=== PATIENT | male | born 1970 | race Asian ===

== ENCOUNTER 2020-09-12 20:59 | Inpatient (IN) | payer MEDICAID, OTHER ==
[~2020-09-12] VITALS: Ht 172.7 cm; Wt 60.9 kg
[2020-09-12 22:04] LABS: Basophils # (auto) 0.1 10 ^3/uL (0-0.2); Eosinophils # (auto) 0 10 ^3/uL (0-0.8); Eosinophils % (auto) 0.1 % (0.0-7.0); Lymphocytes # (auto) 1.7 10 ^3/uL (0.4-5.4); Monocytes # (auto) 0.9 10 ^3/uL (0-1.3); White Blood Cell 11.8 10^3/uL (4.4-10.8)
[2020-09-12 22:05] LABS: Basophils % (auto) 0.8 % (0.0-2.0); Hematocrit 40.5 % (41.0-53.0); Hemoglobin 14.5 g/dL (13.5-17.5); Mean Corpuscular Hemoglobin 31.2 pg (28.0-32.0); Mean Corpuscular Hgb Conc. 35.9 g/dL (32.0-36.0); Neutrophils # (auto) 9.1 10 ^3/uL (1.6-8.6); Neutrophils % (auto) 77.1 % (37.0-80.0); Platelet Count (auto) 685 10^3/uL (140-450); Red Blood Cells 4.65 10^6/uL (4.5-5.90); Red Cell Distribution Width 12.4 % (11.8-14.3)
[2020-09-12 22:22] LABS: Anion Gap 11 (5-15); Blood Urea Nitrogen 12 mg/dL (7-18); Calcium 9.4 mg/dL (8.5-10.1); Carbon Dioxide 21 mmol/L (21-32); Chloride 94 mmol/L (98-107); Glucose 152 mg/dL (74-106); Magnesium 2.3 mg/dL (1.6-2.6); Potassium 3.6 mmol/L (3.5-5.1); Sodium 126 mmol/L (136-145)
[2020-09-12 22:27] LABS: Alanine Aminotransferase 40 U/L (16-61); Alkaline Phosphatase 114 U/L (45-117); Aspartate Aminotransferase 21 U/L (15-37); BUN/Creatinine Ratio 13.3; GFR African American 114 mL/min; GFR Non-African American 94 mL/min
[2020-09-12 23:07] LABS: Urine Bacteria FEW /hpf (None Seen); Urine Blood Negative /uL (Negative); Urine Specific Gravity 1.005 (1.001-1.035); Urine Sperm PRESENT /hpf (None Seen); Urine WBC <1 /hpf (0 - 3)
[2020-09-13] MEDS ORDERED: cefTRIAXone 1GM/50ML D5W 50 ML IV ONE (00:15)
[2020-09-13] MEDS ORDERED: SODIUM CHLORIDE 0.9% 1,000 ML IV ONE (01:00)
[2020-09-13] MEDS ORDERED: PHENAZOPYRIDINE HCL 100 MG TAB PO ONE (01:30)
[2020-09-13] MEDS ORDERED: MORPHINE SULF INJ 2 MG/ML SYRINGE 1ML IV PRN (10:15)
[2020-09-13] MEDS ORDERED: NITROGLYCERIN 0.4 MG SL TAB SL PRN (10:15)
[2020-09-13] MEDS ORDERED: ACETAMINOPHEN 500 MG TAB PO PRN (10:15)
[2020-09-13] MEDS ORDERED: ONDANSETRON HCL 4 MG/2 ML VIAL IV PRN (10:15)
[2020-09-13] MEDS ORDERED: PHEN-1143 PO (11:20)
[2020-09-13] MEDS ORDERED: CEFD300C2 PO (11:20)
[2020-09-13] MEDS ORDERED: TAMS0.4C36 PO (11:20)
[2020-09-13] MEDS: TAMSULOSIN HYDROCHLORIDE 0.4 MG CAP PO SCH (18:40)
[2020-09-13 22:00] VITALS: BP 138/92
[2020-09-13] MEDS: PHENAZOPYRIDINE HCL 100 MG TAB PO SCH (22:53)
[2020-09-14 01:32] VITALS: BP 138/92
[2020-09-14] MEDS ORDERED: DEXT60TA4 PO (01:55)
[2020-09-14 05:00] VITALS: BP 135/88
[2020-09-14 05:59] LABS: BUN/Creatinine Ratio 22.7; Calcium 9.1 mg/dL (8.5-10.1); Potassium 3.6 mmol/L (3.5-5.1)
[2020-09-14 08:58] VITALS: BP 135/99
[2020-09-14] MEDS: PHENAZOPYRIDINE HCL 100 MG TAB PO SCH ×2 (09:39→21:41)
[2020-09-14] MEDS: FAMOTIDINE 20 MG TAB PO SCH (09:39)
[2020-09-14] MEDS ORDERED: LACTULOSE 20Gm/30ML SOLN PO ONE (11:00)
[2020-09-14] MEDS ORDERED: LORazepam 0.5 MG TAB PO ONE (11:45)
[2020-09-14] MEDS ORDERED: LORazepam 0.5 MG TAB PO PRN (11:45)
[2020-09-14 12:36] VITALS: BP 125/88
[2020-09-14] MEDS: SOD CHL 0.9%/ KCL 20MEQ 1,000 ML IV SCH ×2 (13:54→21:24)
[2020-09-14] MEDS ORDERED: IOPAMIDOL 76 % (ISOVUE-370) 100ML BTL IV ONE (14:27)
[2020-09-14 16:05] LABS: Amphetamine Screen, Urine NEGATIVE (NEGATIVE); Barbiturate Scree,Urine NEGATIVE (NEGATIVE); Benzodiazephine Screen, Urine NEGATIVE (NEGATIVE); Cannabinoid Screen, Urine NEGATIVE (NEGATIVE); Cocaine Screen, Urine NEGATIVE (NEGATIVE); Opiate Scree,Urine NEGATIVE (NEGATIVE); Phencyclidine Screen, Urine NEGATIVE (NEGATIVE)
[2020-09-14 16:36] VITALS: BP 148/102
[2020-09-14] MEDS: TAMSULOSIN HYDROCHLORIDE 0.4 MG CAP PO SCH (18:10)
[2020-09-14] MEDS: HYDROcodone-ACET 5/325MG TAB PO PRN (18:11)
[2020-09-14] MEDS: ZOLPIDEM TARTRATE 5 MG TAB PO PRN (21:41)
[2020-09-14] MEDS: LACTULOSE 20Gm/30ML SOLN PO SCH (21:41)
[2020-09-14 22:00] VITALS: BP 144/99
[2020-09-15 05:00] VITALS: BP 149/85
[2020-09-15 07:24] LABS: Basophils # (auto) 0.1 10 ^3/uL (0-0.2); Basophils % (auto) 0.8 % (0.0-2.0); Eosinophils # (auto) 0 10 ^3/uL (0-0.8); Monocytes # (auto) 0.5 10 ^3/uL (0-1.3)
[2020-09-15 07:27] LABS: Eosinophils % (auto) 0.2 % (0.0-7.0); Hematocrit 37.4 % (41.0-53.0); Hemoglobin 13.4 g/dL (13.5-17.5); Lymphocytes # (auto) 1.8 10 ^3/uL (0.4-5.4); Mean Corpuscular Hemoglobin 31.4 pg (28.0-32.0); Mean Corpuscular Hgb Conc. 35.7 g/dL (32.0-36.0); Monocytes % (auto) 5.4 % (0.0-12.0); Neutrophils # (auto) 6.1 10 ^3/uL (1.6-8.6); Neutrophils % (auto) 72.6 % (37.0-80.0); Nucleated Red Blood Cells % 0.1 %; Platelet Count (auto) 453 10^3/uL (140-450); Red Blood Cells 4.25 10^6/uL (4.5-5.90); Red Cell Distribution Width 12.3 % (11.8-14.3); White Blood Cell 8.5 10^3/uL (4.4-10.8)
[2020-09-15 07:36] LABS: INR 1.09 (0.9-1.15); Partial Thromboplastin Time 27.7 sec (23.0-31.2)
[2020-09-15 07:55] LABS: BUN/Creatinine Ratio 16.4; Calcium 8.7 mg/dL (8.5-10.1); Potassium 3.8 mmol/L (3.5-5.1)
[2020-09-15 09:00] VITALS: BP 130/91
[2020-09-15] MEDS ORDERED: cefTRIAXone 1GM/50ML D5W 50 ML IV ONE (09:45)
[2020-09-15] MEDS: FAMOTIDINE 20 MG TAB PO SCH (10:34)
[2020-09-15] MEDS: LACTULOSE 20Gm/30ML SOLN PO SCH ×2 (10:34→21:45)
[2020-09-15] MEDS: DOXYCYCLINE 100MG/250ML 250 ML IV SCH ×2 (11:35→21:45)
[2020-09-15 13:00] VITALS: BP 136/96
[2020-09-15] MEDS: MORPHINE SULF INJ 2 MG/ML SYRINGE 1ML IV PRN ×2 (14:42→21:46)
[2020-09-15] MEDS: TAMSULOSIN HYDROCHLORIDE 0.4 MG CAP PO SCH (14:42)
[2020-09-15 17:00] VITALS: BP 142/99
[2020-09-15] MEDS: ZOLPIDEM TARTRATE 5 MG TAB PO PRN (21:46)
[2020-09-15 22:00] VITALS: BP 146/98
[2020-09-16 05:00] VITALS: BP 118/83
[2020-09-16] MEDS: cefTRIAXone 1GM/50ML D5W 50 ML IV SCH (08:59)
[2020-09-16 09:00] VITALS: BP 147/106
[2020-09-16] MEDS: LACTULOSE 20Gm/30ML SOLN PO SCH ×3 (09:36→21:40)
[2020-09-16] MEDS: SOD CHL 0.9%/ KCL 20MEQ 1,000 ML IV SCH (09:36)
[2020-09-16] MEDS: FAMOTIDINE 20 MG TAB PO SCH (09:36)
[2020-09-16] MEDS: DOXYCYCLINE 100MG/250ML 250 ML IV SCH ×2 (09:36→21:32)
[2020-09-16] MEDS ORDERED: MIDAZOLAM HCL 1MG/1ML-2 ML VIAL IV ONE (13:30)
[2020-09-16] MEDS ORDERED: fentaNYL CITRATE 100 MCG/2 ML VL IV ONE (13:30)
[2020-09-16 14:42] VITALS: BP 138/92
[2020-09-16] MEDS ORDERED: LIDOCAINE 2%HCL (LOCAL ANESTH.) INJ 20ML MDV ONE (16:33)
[2020-09-16 16:38] VITALS: BP 149/108
[2020-09-16] MEDS: TAMSULOSIN HYDROCHLORIDE 0.4 MG CAP PO SCH (17:57)
[2020-09-16 21:32] VITALS: BP 120/86
[2020-09-16] MEDS: ZOLPIDEM TARTRATE 5 MG TAB PO PRN (21:32)
[2020-09-17 05:41] VITALS: BP 146/104
[2020-09-17 09:08] VITALS: BP 142/96
[2020-09-17] MEDS: cefTRIAXone 1GM/50ML D5W 50 ML IV SCH (09:10)
[2020-09-17] MEDS: HYDROcodone-ACET 5/325MG TAB PO PRN (09:10)
[2020-09-17] MEDS ORDERED: METOPROLOL TARTRATE 25 MG TAB PO SCH (10:00)
[2020-09-17] MEDS: LACTULOSE 20Gm/30ML SOLN PO SCH (10:00)
[2020-09-17] MEDS: FAMOTIDINE 20 MG TAB PO SCH (10:43)
[2020-09-17] MEDS: DOXYCYCLINE 100MG/250ML 250 ML IV SCH (10:45)
[2020-09-17] MEDS ORDERED: MET25T PO (11:45)
[2020-09-17] MEDS ORDERED: DOXY-286 PO (11:45)
[2020-09-17] MEDS ORDERED: FINA5TAB4 PO (11:45)
[2020-09-17 13:00] VITALS: BP_SYST 118; BP_SYST 144; BP_DIAS 85; BP_DIAS 94
[2020-09-17 17:08] VITALS: BP 134/92
== END 2020-09-17 16:50 | disposition home or self-care (01) | DRG 501 ==
LOC: ER 21:02 → TELE 21:03 → TELE-WESTW 09-13 20:48
PROVIDERS: ADMIT Nurse Practitioner Acute Care; ATTEND Internal Medicine
PROC: 0T9B70Z Drainage of Bladder with Drainage Device, Via Natural or Artificial Opening (ICD-10-PCS; principal; 2020-09-12)
DX: N40.1 Benign prostatic hyperplasia with lower urinary tract symptoms (principal); E87.1 Hypo-osmolality and hyponatremia; I10 Essential (primary) hypertension; G47.00 Insomnia, unspecified; K59.00 Constipation, unspecified; F32.9 Major depressive disorder, single episode, unspecified; K80.20 Calculus of gallbladder without cholecystitis without obstruction; N13.8 Other obstructive and reflux uropathy; R33.8 Other retention of urine; N41.9 Inflammatory disease of prostate, unspecified; J18.9 Pneumonia, unspecified organism; Z20.822 Contact with and (suspected) exposure to COVID-19; D72.829 Elevated white blood cell count, unspecified
CPT/HCPCS: 36415; 51702; 71045; 71250; 71275; 74176; 80048; 80053; 80307; 81001; 83735; 83880; 83930; 84154; 84484; 85025; 85610; 85730; 87086; 87426; 93005; 96361; 96365; 97110; 97116; 97163; 97530; G0378; J0696; J2250; J3490

== ENCOUNTER 2021-09-17 14:48 | Emergency (ER) | payer MEDICAID ==
[~2021-09-17] VITALS: Ht 175.3 cm; Wt 59.0 kg
[~2021-09-17 14:48] MED LIST: DOXY-286 PO; FINA5TAB4 PO; MET25T PO; TAMS0.4C36 PO
[2021-09-17 15:10] VITALS: BP 128/79
[2021-09-17] MEDS ORDERED: FLUORESCEIN SOD OPTH TEST STRIP OP ONE (15:45)
[2021-09-17] MEDS ORDERED: TETRACAINE HCL 0.5% OPTH(EYE) SOLN 4ML LEFTEYE ONE (15:45)
[2021-09-17] MEDS ORDERED: CIP03OS LEFTEYE (16:17)
== END 2021-09-17 16:29 | disposition home or self-care (01) ==
LOC: ER 14:48
DX: T15.02XA Foreign body in cornea, left eye, initial encounter (principal); W45.8XXA Other foreign body or object entering through skin, initial encounter; Y93.89 Activity, other specified; Y92.89 Other specified places as the place of occurrence of the external cause; Y99.8 Other external cause status
CPT/HCPCS: 65222